=== PATIENT | female | born 1955 | race Asian ===

== ENCOUNTER 2017-07-08 14:05 | Inpatient (IN) | payer OTHER ==
[~2017-07-08] VITALS: Ht 149.9 cm; Wt 55.5 kg
[2017-07-08] MEDS ORDERED: METOCLOPRAMIDE HCL 5 MG/ML 2 ML VIAL IVP ONE (15:15)
[2017-07-08] MEDS ORDERED: METOPROLOL TARTRATE 5 MG/5 ML VIAL IVP ONE (15:15)
[2017-07-08] MEDS ORDERED: DiphenhydrAMINE HCL 50 MG/ML VIAL IVP ONE (15:15)
[2017-07-08 15:27] LABS: HEMATOCRIT 42.8 % (36-46); HEMOGLOBIN 14.1 g/dL (12.0-16.0); MEAN CORPUSCULAR HEMOGLOBIN 29.6 pg (26.0-34.0); MEAN CORPUSCULAR HGB CONC 32.8 G/dL (31.0-37.0); MEAN CORPUSCULAR VOLUME 90 fL (80-100); PLATELET COUNT (AUTO) 262 K/uL (150-450); RED BLOOD CELL COUNT(AUTO) 4.76 MIL/uL (4.00-5.20)
[2017-07-08 15:50] LABS: BAND NEUTROPHILS % (MANUAL) 3 % (1-5); LYMPHOCYTES % (MANUAL) 18 % (22-44); MONOCYTES % (MANUAL) 5 % (2-9); REACTIVE LYMPHOCYTES 2 % (0-0); SEGMENTED NEUTROPHILS % 72 % (40-70)
[2017-07-08 15:51] LABS: PLATELET MORPHOLOGY COMMENT NORMAL
[2017-07-08 15:56] LABS: ALBUMIN 3.9 g/dL (3.4-5.0); BILIRUBIN,TOTAL 0.8 mg/dL (0.1-1.0); CALCIUM, TOTAL 9.2 mg/dL (8.8-10.5); CREATININE 1.11 mg/dL (0.60-1.30); TOTAL PROTEIN, SERUM 9.1 g/dL (6.4-8.2)
[2017-07-08] MEDS ORDERED: CefTRIAXone 1 GM/DEXTROSE 50 ML IV ONE (16:30)
[2017-07-08] MEDS ORDERED: SODIUM CHLORIDE 0.9% 1,000 ML IV ONE ×2 (16:30)
[2017-07-08] MEDS ORDERED: ACETAMINOPHEN 325 MG TABLET PO PRN (17:00)
[2017-07-08] MEDS ORDERED: ONDANSETRON HCL 4 MG/2 ML VIAL IVP PRN ×2 (17:00→19:45)
[2017-07-08] MEDS ORDERED: 0.9% SODIUM CHLORIDE 10 ML SYRINGE IVP PRN (17:00)
[2017-07-08] MEDS ORDERED: ASPIRIN 325 MG TABLET PO ONE (17:45)
[2017-07-08] MEDS ORDERED: AmLODIPine BESYLATE 5 MG TABLET PO ONE (19:00)
[2017-07-08 19:04] LABS: POTASSIUM 3.7 mmol/L (3.5-5.1)
[2017-07-08] MEDS ORDERED: BISACODYL 10 MG RECTAL RECTAL SUPPOSITORY PR PRN (19:45)
[2017-07-08] MEDS ORDERED: HydrALAZINE HCL 20 MG/ML VIAL IVP ONE (19:45)
[2017-07-08] MEDS ORDERED: MORPHINE SULFATE 2 MG/ML SYRINGE IVP PRN (19:45)
[2017-07-08 19:46] LABS: APPEARANCE,URINE CLEAR (CLEAR); BILIRUBIN,URINE NEGATIVE (NEGATIVE); GLUCOSE, URINE (UA) NEGATIVE (NEGATIVE); KETONES,URINE NEGATIVE (NEGATIVE); LEUKOCYTE ESTERASE ,URINE NEGATIVE (NEGATIVE); NITRATE,URINE NEGATIVE (NEGATIVE); OCCULT BLOOD,URINE TRACE (NEGATIVE); PH,URINE 6.5 (5.0-8.0); PROTEIN,URINE SEE CONFIRM (NEGATIVE); UROBILINOGEN,URINE 0.2 mg/dL (<=1.0)
[2017-07-08 20:06] LABS: BACTERIA,URINE Rare /HPF (None Seen); SQUAMOUS EPITHELIAL CELL,UR Few /LPF (None Seen); SULFOSALICYLIC ACID,URINE 2+ (Negative); WBC,URINE 0-2 /HPF (0-5)
[2017-07-08] MEDS: LANSOPRAZOLE 30 MG CAPSULE PO SCH (20:23)
[2017-07-08] MEDS: NITROGLYCERIN 2% (1 GM=INCH) PACKET TP SCH (20:42)
[2017-07-08] MEDS: DOCUSATE SODIUM 100 MG CAPSULE PO SCH (20:52)
[2017-07-08 21:17] LABS: INFLUENZA TYPE A NEGATIVE FOR TYPE A (NEGATIVE); INFLUENZA TYPE B NEGATIVE FOR TYPE B (NEGATIVE)
[2017-07-08 22:38] VITALS: BP 149/83
[2017-07-09] MEDS: NITROGLYCERIN 2% (1 GM=INCH) PACKET TP SCH ×3 (00:59→12:00)
[2017-07-09] MEDS: HEPARIN SODIUM,PORCINE 5,000 UNITS/ML VIAL SQ SCH ×3 (01:00→16:00)
[2017-07-09] MEDS ORDERED: INFLUENZA VIRUS VACCINE QVS 2017-18 (3YR+)/PF 60 MCG/0.5 ML SYRINGE IM ONE (04:30)
[2017-07-09] MEDS ORDERED: PNEUMOCOCCAL VACCINE POLYVALENT 0.5 ML VIAL [PPSV23] IM ONE (04:45)
[2017-07-09 05:36] VITALS: BP 135/69
[2017-07-09 07:24] VITALS: BP 144/79
[2017-07-09 07:43] LABS: BASOPHILS % (AUTO) 0.1 % (0.0-2.0); EOSINOPHILS % (AUTO) 0.5 % (1.0-6.0); HEMATOCRIT 32.2 % (36-46); HEMOGLOBIN 10.9 g/dL (12.0-16.0); LYMPHOCYTES # (AUTO) 1.7 K/uL (1.0-4.8); LYMPHOCYTES % (AUTO) 9.5 % (22.0-44.0); MEAN CORPUSCULAR HEMOGLOBIN 30.5 pg (26.0-34.0); MEAN CORPUSCULAR HGB CONC 33.7 G/dL (31.0-37.0); MEAN CORPUSCULAR VOLUME 90 fL (80-100); MONOCYTES # (AUTO) 0.8 K/uL (0.1-1.0); MONOCYTES % (AUTO) 4.5 % (2.0-9.0); NEUTROPHILS # (AUTO) 15.5 K/uL (1.8-7.7); PLATELET COUNT (AUTO) 226 K/uL (150-450); RED BLOOD CELL COUNT(AUTO) 3.57 MIL/uL (4.00-5.20); RED CELL DISTRIBUTION WIDTH 13.3 % (11.5-14.5)
[2017-07-09 07:55] LABS: NEUTROPHILS % (AUTO) 85.4 % (40.0-70.0)
[2017-07-09 08:02] LABS: ALBUMIN 2.9 g/dL (3.4-5.0); BILIRUBIN,TOTAL 0.5 mg/dL (0.1-1.0); CALCIUM, TOTAL 8.2 mg/dL (8.8-10.5); CREATININE 0.95 mg/dL (0.60-1.30); POTASSIUM 3.3 mmol/L (3.5-5.1)
[2017-07-09] MEDS: METOPROLOL SUCCINATE 25 MG ER TABLET PO SCH (08:33)
[2017-07-09] MEDS: DOCUSATE SODIUM 100 MG CAPSULE PO SCH ×2 (08:33→19:36)
[2017-07-09] MEDS: LANSOPRAZOLE 30 MG CAPSULE PO SCH (08:33)
[2017-07-09] MEDS ORDERED: LISINOPRIL 5 MG TABLET PO SCH (09:00)
[2017-07-09 11:03] VITALS: BP 150/76
[2017-07-09 16:55] VITALS: BP 135/78
[2017-07-09] MEDS ORDERED: POTASSIUM CHLORIDE 20 MEQ ER TABLET PO ONE (18:00)
[2017-07-09] MEDS ORDERED: POTASSIUM CHLORIDE 10% 40 MEQ/30 ML LIQUID UDCUP PO ONE (18:15)
[2017-07-09 20:01] VITALS: BP 150/85
[2017-07-10] VITALS (8 sets, daily range): BP systolic 143–197; BP diastolic 77–94
[2017-07-10] MEDS: HEPARIN SODIUM,PORCINE 5,000 UNITS/ML VIAL SQ SCH ×3 (00:04→16:39)
[2017-07-10] MEDS: ENALAPRILAT DIHYDRATE 1.25 MG/ML 2 ML VIAL IVP PRN ×2 (06:45→16:34)
[2017-07-10 08:12] LABS: B-TYPE NATRIURETIC PEPTIDE 10 pg/mL (0-100)
[2017-07-10] MEDS: DOCUSATE SODIUM 100 MG CAPSULE PO SCH ×2 (09:00→21:00)
[2017-07-10 09:10] LABS: ANION GAP 12 mmol/L (8-16); CALCIUM, TOTAL 9.1 mg/dL (8.8-10.5); CARBON DIOXIDE 25 mmol/L (22-29); CHLORIDE 104 mmol/L (98-107); CREATINE KINASE, TOTAL 52 U/L (26-192); CREATININE 1.03 mg/dL (0.60-1.30); GLOMERULAR FILTR. RATE CALC 54 mL/min (>60); GLUCOSE,RANDOM 88 mg/dL (70-110); POTASSIUM 4.1 mmol/L (3.5-5.1); SODIUM SERUM 141 mmol/L (136-145)
[2017-07-10 09:26] LABS: UREA NITROGEN, BLOOD 13 mg/dL (7-18)
[2017-07-10] MEDS ORDERED: REGADENOSON 0.4 MG/5 ML PF SYRINGE IVP ONE ×2 (10:48→17:54)
[2017-07-10] MEDS ORDERED: SESTAMIBI TC99M/UD ISOTOPE 1 EA INJ INJ ONE ×2 (11:00→13:30)
[2017-07-10] MEDS: METOPROLOL SUCCINATE 25 MG ER TABLET PO SCH (12:00)
[2017-07-10] MEDS: LISINOPRIL 10 MG TABLET PO SCH (12:00)
[2017-07-10] MEDS: LANSOPRAZOLE 30 MG CAPSULE PO SCH (12:00)
[2017-07-11] VITALS (8 sets, daily range): BP systolic 128–164; BP diastolic 64–89
[2017-07-11] MEDS: DOCUSATE SODIUM 100 MG CAPSULE PO SCH ×3 (08:28→19:52)
[2017-07-11] MEDS: HEPARIN SODIUM,PORCINE 5,000 UNITS/ML VIAL SQ SCH ×4 (08:28→23:50)
[2017-07-11] MEDS: LISINOPRIL 10 MG TABLET PO SCH (08:29)
[2017-07-11] MEDS: METOPROLOL SUCCINATE 25 MG ER TABLET PO SCH (08:29)
[2017-07-11] MEDS: LANSOPRAZOLE 30 MG CAPSULE PO SCH (08:29)
[2017-07-11 10:07] LABS: BASOPHILS # (AUTO) 0.02 K/uL (0.00-0.20); BASOPHILS % (AUTO) 0.3 % (0.0-2.0); EOSINOPHILS # (AUTO) 0.31 K/uL (0.00-0.70); EOSINOPHILS % (AUTO) 4.43 % (1.0-6.0); HEMATOCRIT 38.4 % (36-46); HEMOGLOBIN 12.5 g/dL (12.0-16.0); LYMPHOCYTES % (AUTO) 29.2 % (22.0-44.0); MEAN CORPUSCULAR HEMOGLOBIN 29.6 pg (26.0-34.0); MEAN CORPUSCULAR HGB CONC 32.5 G/dL (31.0-37.0); MEAN CORPUSCULAR VOLUME 91 fL (80-100); MONOCYTES # (AUTO) 0.5 K/uL (0.1-1.0); MONOCYTES % (AUTO) 7.5 % (2.0-9.0); NEUTROPHILS # (AUTO) 4.1 K/uL (1.8-7.7); NEUTROPHILS % (AUTO) 58.6 % (40.0-70.0); PLATELET COUNT (AUTO) 254 K/uL (150-450); RED BLOOD CELL COUNT(AUTO) 4.21 MIL/uL (4.00-5.20); RED CELL DISTRIBUTION WIDTH 13.4 % (11.5-14.5)
[2017-07-11 10:18] LABS: CALCIUM, TOTAL 9.1 mg/dL (8.8-10.5); CREATININE 1.02 mg/dL (0.60-1.30); POTASSIUM 3.6 mmol/L (3.5-5.1)
[2017-07-11] MEDS ORDERED: SODIUM CHLORIDE 0.9% 100 ML ONE (12:08)
[2017-07-11] MEDS: CeFAZolin 1 GM/DEXTROSE 50 ML IV SCH ×2 (13:05→19:52)
[2017-07-12] MEDS: CeFAZolin 1 GM/DEXTROSE 50 ML IV SCH ×3 (04:07→19:28)
[2017-07-12 04:37] VITALS: BP 162/78
[2017-07-12] MEDS: ENALAPRILAT DIHYDRATE 1.25 MG/ML 2 ML VIAL IVP PRN (05:17)
[2017-07-12 07:00] VITALS: BP 147/79
[2017-07-12] MEDS: DOCUSATE SODIUM 100 MG CAPSULE PO SCH ×2 (08:31→21:12)
[2017-07-12] MEDS: METOPROLOL SUCCINATE 25 MG ER TABLET PO SCH (08:31)
[2017-07-12] MEDS: HEPARIN SODIUM,PORCINE 5,000 UNITS/ML VIAL SQ SCH ×3 (08:31→23:51)
[2017-07-12] MEDS: LANSOPRAZOLE 30 MG CAPSULE PO SCH (08:31)
[2017-07-12] MEDS: LISINOPRIL 10 MG TABLET PO SCH (08:32)
[2017-07-12 11:26] VITALS: BP 156/80
[2017-07-12 15:39] VITALS: BP 149/89
[2017-07-12 19:55] VITALS: BP 145/86
[2017-07-12 23:36] VITALS: BP 149/78
[2017-07-13] VITALS (7 sets, daily range): BP systolic 118–147; BP diastolic 79–91
[2017-07-13] MEDS: CeFAZolin 1 GM/DEXTROSE 50 ML IV SCH ×2 (03:17→11:45)
[2017-07-13] MEDS: LANSOPRAZOLE 30 MG CAPSULE PO SCH (08:59)
[2017-07-13] MEDS: HEPARIN SODIUM,PORCINE 5,000 UNITS/ML VIAL SQ SCH ×3 (08:59→23:19)
[2017-07-13] MEDS: DOCUSATE SODIUM 100 MG CAPSULE PO SCH ×2 (08:59→20:38)
[2017-07-13] MEDS: METOPROLOL SUCCINATE 25 MG ER TABLET PO SCH (09:01)
[2017-07-13] MEDS: LISINOPRIL 10 MG TABLET PO SCH (09:01)
[2017-07-13] MEDS ORDERED: VANCOMYCIN HCL 1 GM/D5% WATER 200 ML IV ONE (18:00)
[2017-07-14 05:01] VITALS: BP 145/53
[2017-07-14 06:55] LABS: CALCIUM, TOTAL 9.2 mg/dL (8.8-10.5); CREATININE 1.02 mg/dL (0.60-1.30); POTASSIUM 4.1 mmol/L (3.5-5.1)
[2017-07-14] MEDS ORDERED: LISI-661 PO (07:18)
[2017-07-14] MEDS ORDERED: METO25XL PO (07:18)
[2017-07-14 07:30] VITALS: BP 140/72
[2017-07-14] MEDS ORDERED: VANCOMYCIN HCL 750 MG in DEXTROSE 5%-WATER 150 ML IV SCH (08:00)
[2017-07-14] MEDS ORDERED: LISINOPRIL 10 MG TABLET PO SCH (09:00)
== END 2017-07-14 07:45 | disposition home or self-care (01) | DRG 313 ==
LOC: EMS 14:06 → 5N 21:20 → 5S 07-13 17:23
PROVIDERS: ADMIT Internal Medicine; ATTEND Internal Medicine
PROC: 3E0234Z Introduction of Serum, Toxoid and Vaccine into Muscle, Percutaneous Approach (ICD-10-PCS; principal; 2017-07-09)
DX: R07.89 Other chest pain (principal); R78.81 Bacteremia; R65.10 Systemic inflammatory response syndrome (SIRS) of non-infectious origin without acute organ dysfunction; D72.829 Elevated white blood cell count, unspecified; J45.909 Unspecified asthma, uncomplicated; I16.0 Hypertensive urgency; R51 Headache; B95.7 Other staphylococcus as the cause of diseases classified elsewhere; Z23 Encounter for immunization; Z79.82 Long term (current) use of aspirin; Z79.899 Other long term (current) drug therapy; Z82.49 Family history of ischemic heart disease and other diseases of the circulatory system
CPT/HCPCS: 70450; 78452; 83605; 83735; 87040; 87804; 90471; 93005; 93017; 93306; 96374; 96375; 99291; A9500; J0690; J0696; J1200; J1644; J2765; J2785; J3370; J3490; J7050; J7060